=== PATIENT | female | born 1940 | race Caucasian/White ===

== ENCOUNTER 2017-02-18 13:09 | Outpatient (CLI) | payer MEDICARE, OTHER | END 2017-02-18 13:10 | disposition critical access hospital (66) | LOC: EMS 13:09 | PROVIDERS: ATTEND Surgery | DX: R11.2 Nausea with vomiting, unspecified (principal) | CPT/HCPCS: A0425; A0427 ==

== ENCOUNTER 2017-02-18 13:34 | Emergency (ER) | payer MEDICARE, OTHER ==
[2017-02-18] MEDS ORDERED: ONDANSETRON 4 MG/2 ML VIAL IVP STA ×2 (14:22→19:29)
[2017-02-18] MEDS ORDERED: ONDANSETRON 4 MG/2 ML VIAL ONE ×2 (14:27→19:35)
--- NOTE | 2017-02-18 14:40 | ED Physician Documentation ---
History of Present Illness - Stated complaint Stated Complaint: V/D - Chief complaint Chief Complaint: Abd Pain - History obtained from History obtained from: Patient, Family - Additonal information Additional information: Patient is a pleasant 76-year-old female who has a breast cancer in remission. She also has a history of hypertension. She is here with the onset of nausea vomiting and generalized shaking starting this morning. She is also had diarrhea. She went out to eat dinner last night however no one else is sick. She did drink a little bit of alcohol which is not unusual for her. She is fine until acute onset of nausea vomiting diarrhea at 9 AM she has had about 10 episodes of vomiting all day and about 4-5 loose stool. She has abdominal cramping but really no abdominal pain per se. She does have generalized shakiness. She denies any ear nose or throat symptoms or preceding illness. There is no cough or shortness of breath. She has not had a fever and there is no dysuria. Review of systems: For pertinent positive and negatives in the review of systems please see the history of present illness, otherwise all other systems have been reviewed and are negative. Dragon disclaimer: Parts of this medical record were created using voice recognition technology. Because of the inherent limitations of this system, occasional same sounding word substitutions do occur and persist despite proofreading. Please read the document for context. Review of Systems Constitutional: denies: Fever, Chills GI: reports: Nausea, Vomiting, Diarrhea. denies: Abdominal Pain PD PAST MEDICAL HISTORY - Past Medical History Past Medical History: Yes Cardiovascular: Hypertension, High cholesterol, Coronary artery disease Endocrine/Autoimmune: HyPOthyroidism - Present Medications Home Medications: Ambulatory Orders Medication Instructions Recorded Confirmed Chlorthalidone 25 02/18/17 Levothyroxine [Synthroid] 75 02/18/17 Lisinopril 10 02/18/17 Metoprolol Succinate 50 02/18/17 Simvastatin 10 02/18/17 Venlafaxine HCl 25 02/18/17 - Allergies Allergies/Adverse Reactions: Allergies Allergy/AdvReac Type Severity Reaction Status Date / Time amlodipine Allergy Unknown Verified 02/18/17 13:43 - Social History Does the pt smoke?: No Smoking Status: Never smoker PD ED PE NORMAL - Vitals Vital signs reviewed: Yes - General General: Alert and oriented X 3, No acute distress, Well developed/nourished, Other (Ill-appearing female for the most part. She does have a mild generalized shaking) - HEENT HEENT: Atraumatic, PERRL - Neck Neck: Supple, no meningeal sign - Cardiac Cardiac: RRR, No murmur - Respiratory Respiratory: No respiratory distress - Abdomen Abdomen: Normal bowel sounds, Soft, Non tender, Non distended - Back Back: No CVA TTP - Derm Derm: Normal color, Warm and dry, No rash, Other - Extremities Extremities: No deformity, No tenderness to palpate - Neuro Neuro: Alert and oriented X 3, No motor deficit, No sensory deficit - Psych Psych: Normal mood, Normal affect Results - Vitals Vitals: Vital Signs - 24 hr 02/18/17 02/18/17 02/18/17 13:37 14:21 16:55 Temperature 35.7 C L Heart Rate 94 90 96 Respiratory 18 16 Rate Blood Pressure 164/76 H 115/47 L 159/56 H O2 Saturation 95 98 98 Oxygen O2 Source Room air - Labs Labs: Microbiology 02/18/17 14:15 Campylobacter Antigen Assay - Final Stool Laboratory Tests 02/18/17 02/18/17 02/18/17 14:15 14:30 14:30 WBC 12.7 H RBC 4.00 L Hgb 12.9 Hct 39.0 MCV 97.6 MCH 32.3 H MCHC 33.1 RDW 13.8 Plt Count 119 L MPV 8.1 Neut # 11.5 H Lymph # 0.7 L [place] # 0.5 Eos # 0.0 Baso # 0.0 Absolute Nucleated RBC 0.00 Nucleated RBCs 0.0 Sodium 143 Potassium 3.6 Chloride 108 Carbon Dioxide 22 Anion Gap 13.0 BUN 35 H Creatinine 1.1 H Estimated GFR (MDRD) 48 L Glucose 112 H Calcium 9.1 Total Bilirubin 0.8 AST 61 H ALT 69 H Alkaline Phosphatase 126 H Troponin I Total Protein 7.3 Albumin 4.3 Globulin 3.0 Albumin/Globulin Ratio 1.4 Lipase 31 Urine Color Urine Clarity Urine pH Ur Specific [place] Urine Protein Urine Glucose (UA) Urine Ketones Urine Occult Blood Urine Nitrite Urine Bilirubin Urine Urobilinogen Ur Leukocyte Esterase Ur Microscopic Review Urine Culture Comments Stool Leukocytes, Qual POSITIVE 02/18/17 02/18/17 14:30 15:25 WBC RBC Hgb Hct MCV MCH MCHC RDW Plt Count MPV Neut # Lymph # [place] # Eos # Baso # Absolute Nucleated RBC Nucleated RBCs Sodium Potassium Chloride Carbon Dioxide Anion Gap BUN Creatinine Estimated GFR (MDRD) Glucose Calcium Total Bilirubin AST ALT Alkaline Phosphatase Troponin I < 0.04 Total Protein Albumin Globulin Albumin/Globulin Ratio Lipase Urine Color YELLOW Urine Clarity CLEAR Urine pH 5.0 Ur Specific [place] 1.025 Urine Protein NEGATIVE Urine Glucose (UA) NEGATIVE Urine Ketones NEGATIVE Urine Occult Blood NEGATIVE Urine Nitrite NEGATIVE Urine Bilirubin NEGATIVE Urine Urobilinogen 0.2 (NORMAL) Ur Leukocyte Esterase NEGATIVE Ur Microscopic Review NOT INDICATED Urine Culture Comments NOT INDICATED Stool Leukocytes, Qual PD MEDICAL DECISION MAKING - ED course Complexity details: reviewed old records, reviewed results, re-evaluated patient , considered differential, d/w patient, d/w engagement quality consultant ED course: Patient is a pleasant 76-year-old female is a history of breast cancer with a history of breast cancer that is currently in remission since 2003. She also has a history of essential hypertension. He went out to dinner last night and drink a little bit which is unusual for her. She has no symptoms at that time. She woke up this morning at 9 AM with a complaint of generalized abdominal cramping nausea vomiting and diarrhea. She had about 10 episodes of nausea and vomiting and 4 episodes of diarrhea the last 2 being obviously bloody. On initial presentation here vital signs are stable in general she looked well. The patient's abdominal examination showed increased borborygmi however there is no focal tenderness on palpation. Rectal exam showed a small amount of blood with external hemorrhoid that is nonthrombosed and felt like internal hemorrhoids as well. A CT scan was done and demonstrated mild diffuse colitis of the sigmoid colon from the starting at the splenic flexure. Blood work on this patient shows mild elevation of her red blood cell count white blood cell count. There is mild elevation of her BUN and creatinine as well. Urine is negative for infection. The patient is doing well clinically after getting a liter and half normal saline and 1 dose of Zofran there is no recurrent nausea and vomiting. The stool has returned preliminarily positive for fecal leukocytes. Other tests including Clostridium difficile are pending. Based on these findings patient probably has an infectious colitis. Rocephin and Flagyl have been initiated. The patient does not want to be admitted here her is requesting transfer to [facility]. I spoke with the [facility] hospitalist Dr. Gill who agrees to accept the patient at that facility. We are arranging for transfer of her at this time. I disposition: Transfer to [facility] Clinical impression: 1. Acute colitis with evidence of colonic thickening on CT scan and fecal leukocyte positive stool 2. Acute nausea vomiting resolved 3. Lower gastrointestinal bleeding with bloody stool 3 so far-patient is hemodynamically stable looks well
[2017-02-18 14:47] LABS: BASOPHILS % (AUTO) 0.2 %; HGB - HEMOGLOBIN 12.9 g/dL (12.0-16.0); LYMPHOCYTES # (AUTO) 0.7 10^3/uL (1.5-3.5); LYMPHOCYTES % (AUTO) 5.5 %; MEAN CORPUSCULAR HEMOGLOBIN 32.3 pg (27.0-31.0); MEAN CORPUSCULAR HGB CONC 33.1 g/dL (32.0-36.0); MEAN CORPUSCULAR VOLUME 97.6 fL (81.0-99.0); MEAN PLATELET VOLUME 8.1 fL (7.9-10.8); MONOCYTES # (AUTO) 0.5 10^3/uL (0.0-1.0); MONOCYTES % (AUTO) 3.6 %; NEUTROPHILS # (AUTO) 11.5 10^3/uL (1.5-6.6); NEUTROPHILS % (AUTO) 90.7 %; RED CELL DISTRIBUTION WIDTH 13.8 % (12.0-15.0); UNCORRECTED WHITE BLOOD COUNT 12.7 x10^3/uL; WHITE BLOOD COUNT 12.7 x10^3/uL (4.8-10.8)
[2017-02-18 15:00] LABS: ALBUMIN/GLOBULIN RATIO 1.4 (1.0-2.2); BILIRUBIN,TOTAL 0.8 mg/dL (0.2-1.0); CALCIUM 9.1 mg/dL (8.5-10.3); CREATININE 1.1 mg/dL (0.4-1.0); POTASSIUM 3.6 mmol/L (3.5-5.0); TOTAL PROTEIN 7.3 g/dL (6.7-8.2)
[2017-02-18 15:40] LABS: BILIRUBIN,URINE NEGATIVE (NEGATIVE)
[2017-02-18 15:41] LABS: UA CHARGE (STRIP ONLY) YES; UR CULTURE IF IND NOT INDICATED
[2017-02-18] MEDS ORDERED: IOPAMIDOL-300 100 ML VIAL IVP ONE (16:18)
--- NOTE | 2017-02-18 17:00 | CT Report ---
EXAM: CT ABDOMEN AND PELVIS EXAM DATE: 02/18/2017 04:19 PM. CLINICAL HISTORY: Nausea, vomiting and diarrhea. Rectal bleeding. COMPARISONS: Abdomen CT 07/12/2006. TECHNIQUE: Routine helical CT imaging was performed through the abdomen and pelvis. IV contrast: 100 cc Isovue-300. Enteric contrast: No. Reconstructions: Coronal and sagittal. In accordance with CT protocol optimization, one or more of the following dose reduction techniques w ere utilized for this exam: automated exposure control, adjustment of mA and/or KV based on patient s ize, or use of iterative reconstructive technique. FINDINGS: Lung Bases: Linear atelectasis bilateral lung bases. Coronary atherosclerosis. Liver: Normal in contour with an accessory right hepatic vein noted. Gallbladder/Bile Ducts: Unremarkable. Spleen: Normal. Pancreas: Mild to moderate pancreatic atrophy. Adrenal Glands: Normal. Kidneys: Symmetric renal enhancement with likely cyst redemonstrated at the upper pole left kidney me asuring 9 mm. Peritoneal Cavity/Bowel: The stomach is unremarkable and there are no dilated loops of large or small intestine. There is mild colonic diverticulosis. Note is made of long segment wall thickening of the colon beginning at the level of the splenic flexure extending to the level of the rectosigmoid junct ion. Trace adjacent free fluid. Mild adjacent fat stranding. No pneumatosis or pneumoperitoneum seen. Sabas hepatis lymph nodes measure up to 11 mm, similar to the prior exam. Pelvic Organs: Normal. The bladder and visualized pelvic organs are within normal limits. Vasculature: 13 mm splenic artery aneurysm, mildly increased in size compared to the prior examinatio n (prior 11 mm). Moderate atherosclerotic calcification with small lymph node or fat stranding anteri or to the abdominal aorta near the origin of the inferior mesenteric artery although similar to the p rior exam. Bones: 3 mm anterolisthesis L4-L5. Other: None. IMPRESSION: 1. Long segment colonic wall thickening extending from the splenic flexure to the rectosigmoid juncti on with adjacent fat stranding. Appearance is consistent with a long segment colitis. Distribution wo uld favor ischemic colitis. No pneumatosis or pneumoperitoneum. Trace free fluid. Differential diagno sis would include an infectious colitis. 2. Splenic artery aneurysm measuring 13 mm, minimally increased in size compared to the prior examina tion. [facility] Referring Provider Line: [phone] SITE ID: [id number]
[2017-02-18] MEDS ORDERED: SODIUM CHLORIDE 0.9% 1,000 ML IV ONE (17:04)
[2017-02-18] MEDS ORDERED: metroNIDAZOLE 500 MG/100 ML 100 ML IV ONE (18:41)
[2017-02-18] MEDS ORDERED: cefTRIAXone 1 GM in SODIUM CHLORIDE 0.9% MINIBAG 100 ML IV STA (18:41)
[2017-02-18] MEDS ORDERED: cefTRIAXone 1 GM VIAL ONE (18:48)
[2017-02-18 18:59] VITALS: BP 158/55
[2017-02-18] MEDS ORDERED: metroNIDAZOLE 500 MG/100 ML 100 ML ONE (19:18)
[2017-02-18] MEDS ORDERED: HYDROmorphone 1 MG/ML CARPUJECT IVP STA (19:29)
[2017-02-18] MEDS ORDERED: HYDROmorphone 1 MG/ML CARPUJECT ONE (19:35)
== END 2017-02-18 20:04 | disposition short-term general hospital (02) ==
LOC: EDUNIT# → ED 13:34
DX: K52.9 Noninfective gastroenteritis and colitis, unspecified (principal); K92.2 Gastrointestinal hemorrhage, unspecified; Z85.3 Personal history of malignant neoplasm of breast; K64.4 Residual hemorrhoidal skin tags
CPT/HCPCS: 36415; 74177; 80053; 81003; 83630; 83690; 84484; 85025; 87045; 87046; 87177; 87209; 87493; 93005; 96365; 96375; 96376; 99283; 99284; J1170; Q9967; 81001; 87086

== ENCOUNTER 2017-02-18 19:58 | Outpatient (CLI) | payer MEDICARE, OTHER | END 2017-02-18 19:59 | disposition short-term general hospital (02) | LOC: EMS 19:58 | PROVIDERS: ATTEND Surgery | DX: K52.9 Noninfective gastroenteritis and colitis, unspecified (principal) | CPT/HCPCS: A0425; A0426 ==